=== PATIENT | male | born 1970 | race Caucasian/White ===

== ENCOUNTER 2020-01-16 11:31 | Emergency (ER) | payer OTHER ==
[~2020-01-16] VITALS: Ht 175 cm; Wt 84.0 kg
--- NOTE | 2020-01-16 11:32 | NUR ---
Pt arrived to ER5 from EMS. Work injury. States cement block fell to RLE et was there for approx 10min before a coworker could remove it. Splint on from EMS to RLE et SL to Lt AC. Pt denies pain at this time. No bleeding.
[2020-01-16] MEDS ORDERED: TETANUS,DIPTH,PERTUSS P/F (BOOSTRIX) 0.5 ML VIAL IM ONE (11:45)
[2020-01-16 11:47] LABS: BASOPHILS % (AUTO) 0 % (0-10); EOSINOPHILS # (AUTO) 0.2 10^3/uL (0.0-0.3); EOSINOPHILS % (AUTO) 1 % (0-10); HEMATOCRIT 49 % (40-54); LYMPHOCYTES # (AUTO) 2.1 X 10^3 (1.0-4.0); LYMPHOCYTES % (AUTO) 15 % (12-44); MEAN CORPUSCULAR HEMOGLOBIN 35 PG (25-34); MEAN CORPUSCULAR HGB CONC 34 G/DL (32-36); MEAN CORPUSCULAR VOLUME 100 FL (80-99); MEAN PLATELET VOLUME 11.2 FL (7.4-10.4); MONOCYTES # (AUTO) 0.7 X 10^3 (0.0-1.0); MONOCYTES % (AUTO) 5 % (0-12); NEUTROPHILS # (AUTO) 11.2 X 10^3 (1.8-7.8); NEUTROPHILS % (AUTO) 78 % (42-75); PLATELET COUNT 209 10^3/uL (130-400); RED CELL DISTRIBUTION WIDTH 13.7 % (10.0-14.5); WHITE BLOOD COUNT 14.3 10^3/uL (4.3-11.0)
--- NOTE | 2020-01-16 11:50 | NUR ---
Lab drawn from by YANIV Howard
[2020-01-16 11:58] LABS: INR 0.9 (0.8-1.4); PROTHROMBIN TIME PATIENT 12.5 SEC (12.2-14.7)
--- NOTE | 2020-01-16 12:01 | ED Lower Extremity ---
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 A frame fell towards him, landed on his right lower leg. It was on his leg for approximately 10 min before being removed. There was obvious deformity to the mid-shaft of the tibia, skin intact. Stirrup splint applied by EMS. History of previous Right ankle fracture and surgery with retained hardware. He was given Fentanyl 100 mcg IV while being transported. Denies pain at this time. No other injuries reported. He denies parasthesias right lower extremity. Onset: just prior to arrival Pain/Injury Location: right leg (mid 1/3 tib/fib) Method of Injury: direct blow Allergies and Home Medications Allergies Coded Allergies: celecoxib (Verified Allergy, Unknown, 01/16/20) Patient Home Medication List Home Medication List Reviewed: Yes Review of Systems Constitutional: no symptoms reported, see HPI Respiratory: no symptoms reported, see HPI; No cough, No short of breath Cardiovascular: no symptoms reported, see HPI; No chest pain Gastrointestinal: no symptoms reported, see HPI; No abdominal pain, No nausea, No vomiting Musculoskeletal: see HPI, muscle pain (right lower leg) Psychiatric/Neurological: See HPI; Denies Headache, Denies Numbness, Denies Paresthesia, Denies Tingling All Other Systems Reviewed Negative Unless Noted: Yes Past Rwxamwy-Mgmrpm-Onnlyq Hx Past Med/Social Hx: Reviewed Nursing Past Med/Soc Hx Physical Exam Vital Signs Vital Signs - First Documented 01/16/20 11:32 Temp 36.4 Pulse 84 Resp 14 B/P (MAP) 141/97 (112) Pulse Ox 98 O2 Delivery Room Air Capillary Refill : Height, Weight, BMI Height: '" Weight: lbs. oz. kg; BMI Method: General Appearance: WD/WN, no apparent distress HEENT: PERRL/EOMI, normal ENT inspection, TMs normal, pharynx normal Neck: non-tender, full range of motion, supple, normal inspection Cardiovascular: normal peripheral pulses (Bilat LEs 2+, Cap refill in right toes < 2 sec), regular rate, rhythm, no edema, no murmur Respiratory: chest non-tender, lungs clear, normal breath sounds, no respiratory distress Gastrointestinal: normal bowel sounds, non tender, soft Back: normal inspection, no CVA tenderness, no vertebral tenderness Hips: bilateral hip non-tender, bilateral hip normal inspection, bilateral hip normal range of motion Legs: right leg normal range of motion (to knee and ankle, but causes pain at mid-tibia), right leg abrasions (superficial to right lower leg, no active bleeding), right leg bone tenderness (mid tibia with obvious fracture palpated, skin intact), right leg deformity (mid tibia), right leg pain, right leg soft tissue tenderness, right leg swelling Knees: bilateral knee non-tender, bilateral knee normal inspection, bilateral knee normal range of motion, bilateral knee no evidence of injury Ankles: bilateral ankle non-tender, bilateral ankle normal inspection, bilateral ankle normal range of motion, bilateral ankle no evidence of injury Feet: bilateral foot non-tender, bilateral foot normal inspection, bilateral foot normal range of motion, bilateral foot no evidence of injury Neurologic/Psychiatric: no motor/sensory deficits, alert, normal mood/affect, oriented x 3 Skin: normal color, warm/dry Lymphatic: no adenopathy Progress/Results/Core Measures Results/Orders Lab Results Laboratory Tests Test 01/16/20 11:40 Range/Units White Blood Count 14.3 H 4.3-11.0 10^3/uL Red Blood Count 4.93 4.35-5.85 10^6/uL Hemoglobin 17.0 13.3-17.7 G/DL Hematocrit 49 40-54 % Mean Corpuscular Volume 100 H 80-99 FL Mean Corpuscular Hemoglobin 35 H 25-34 PG Mean Corpuscular Hemoglobin Concent 34 32-36 G/DL Red Cell Distribution Width 13.7 10.0-14.5 % Platelet Count 209 130-400 10^3/uL Mean Platelet Volume 11.2 H 7.4-10.4 FL Neutrophils (%) (Auto) 78 H 42-75 % Lymphocytes (%) (Auto) 15 12-44 % Monocytes (%) (Auto) 5 0-12 % Eosinophils (%) (Auto) 1 0-10 % Basophils (%) (Auto) 0 0-10 % Neutrophils # (Auto) 11.2 H 1.8-7.8 X 10^3 Lymphocytes # (Auto) 2.1 1.0-4.0 X 10^3 Monocytes # (Auto) 0.7 0.0-1.0 X 10^3 Eosinophils # (Auto) 0.2 0.0-0.3 10^3/uL Basophils # (Auto) 0.0 0.0-0.1 10^3/uL Neutrophils % (Manual) 79 % Lymphocytes % (Manual) 10 % Monocytes % (Manual) 7 % Eosinophils % (Manual) 1 % Basophils % (Manual) 1 % Band Neutrophils 2 % Blood Morphology Comment NORMAL Prothrombin Time 12.5 12.2-14.7 SEC INR Comment 0.9 0.8-1.4 Activated Partial Thromboplast Time 24 24-35 SEC Sodium Level 139 135-145 MMOL/L Potassium Level 4.3 3.6-5.0 MMOL/L Chloride Level 103 98-107 MMOL/L Carbon Dioxide Level 24 21-32 MMOL/L Anion Gap 12 5-14 MMOL/L Blood Urea Nitrogen 12 7-18 MG/DL Creatinine 1.10 0.60-1.30 MG/DL Estimat Glomerular Filtration Rate > 60 BUN/Creatinine Ratio 11 Glucose Level 125 H 70-105 MG/DL Calcium Level 9.5 8.5-10.1 MG/DL Corrected Calcium 8.5-10.1 MG/DL Total Bilirubin 0.4 0.1-1.0 MG/DL Aspartate Amino Transf (AST/SGOT) 28 5-34 U/L Alanine Aminotransferase (ALT/SGPT) 35 0-55 U/L Alkaline Phosphatase 80 40-136 U/L Total Protein 7.4 6.4-8.2 GM/DL Albumin 4.6 H 3.2-4.5 GM/DL My Orders Orders - BOONE MA [employer] Tibia/Fibula, Right, 2 Views (01/16/20 11:38) Knee, Right, 3 Views (01/16/20 11:38) Ankle, Right, 3 Views (01/16/20 11:38) Dipht,Pertuss(Acell),Tet Adult (Boostrix (01/16/20 11:45) Cbc With Automated Diff (01/16/20 11:39) Comprehensive Metabolic Panel (01/16/20 11:39) Protime With Inr (01/16/20 11:39) Partial Thromboplastin Time (01/16/20 11:39) Manual Differential (01/16/20 11:40) Ed Iv/Invasive Line Start (01/16/20 12:36) Lactated Ringers (Lr 1000 Ml Iv Solution (01/16/20 12:36) Fentanyl Injection (Sublimaze Injection (01/16/20 12:45) Medications Given in ED Current Medications Medications Dose Ordered Sig/Huy Route Start Time Stop Time Status Last Admin Dose Admin Diphtheria/ Tetanus/Acell Pertussis 0.5 ml ONCE ONCE IM 01/16/20 11:45 01/16/20 11:46 DC 01/16/20 12:28 0.5 ML Fentanyl Citrate 50 mcg ONCE ONCE IVP 01/16/20 12:45 01/16/20 12:46 DC 01/16/20 12:46 50 MCG Lactated Ringer's 1,000 ml @ 0 mls/hr Q0M ONCE IV 01/16/20 12:36 01/16/20 12:37 DC 01/16/20 12:44 999 MLS/HR Vital Signs/I&O 01/16/20 11:32 Temp 36.4 Pulse 84 Resp 14 B/P (MAP) 141/97 (112) Pulse Ox 98 O2 Delivery Room Air Progress Progress Note : Time: 11:30 Progress Note Patient seen and evaluated, reports pain to be tolerable. Splint removed in the right lower extremity, to fully examine right lower leg. We'll obtain x-rays, labs and continue to manage. 1205 x-ray results reviewed with patient, no orthopedic coverage at this facility, patient requests transfer to [place], [place]. 1230 call placed and message left at [facility]. Patient requesting pain medication, Fentanyl 50 mcg IV. [address] Matute ED at [facility], wants ortho approval. Spoke to Dr. Vaz, ortho, agreed to accept patient. Will go ED to ED. 1300 Patient reports pain controlled. Splint in place with betty wrap to right lower leg. Neurovas status intact, bilat LE. Ice to right mid tib/fib. [facility] notified of transfer request, will be available in 1-2 hours. 1345 Patient continues to be pain free, N-V status intact bilat LEs. 1415 EMS here for transfer, patient requesting pain medication. Fentanyl 50 mcg IV. Patient has remained stable, no change in assessment findings. Diagnostic Imaging Diagonstic Imaging: Xray Plain Films/CT/US/NM/MRI: ankle Comments NAME: JESSICA KING [facility] REC#: [id number] PT STATUS: REG ER : 1970 PHYSICIAN: BOONE MA ADMIT DATE: 01/16/20/ER Draft Date of Exam:01/16/20 ANKLE, RIGHT, 3 VIEWS HISTORY: Trauma to the right lower extremity TECHNIQUE: 3 views of the right ankle. COMPARISON: None FINDINGS: There is sequela from remote trauma of the the distal right tibia and fibula, status post internal fixation of the medial plate on the tibia and a lateral plate on the fibula. No hardware complication or acute fracture is seen about the right ankle. Alignment appears normal. Joint spaces are preserved. No ankle joint effusion is seen. The tibia and fibula diaphyseal fractures are dictated separately. IMPRESSION: 1. Old trauma of the distal right fibula and tibia status post ORIF without hardware complication seen. No acute fracture seen in the right ankle. Dictated on workstation # [id number] Dict: 01/16/20 1226 Trans: 01/16/[address] [facility] [id number] Interpreted by: JESSICA JOSEPH MD Electronically signed by: Reviewed: Reviewed by Me Diagonstic Imaging: Xray Plain Films/CT/US/NM/MRI: knee Comments NAME: JESSICA KING [facility] REC#: [id number] PT STATUS: REG ER : 1970 PHYSICIAN: BOONE MA ADMIT DATE: 01/16/20/ER Draft Date of Exam:01/16/20 KNEE, RIGHT, 3 VIEWS HISTORY: Trauma to the right lower extremity. COMPARISON: None TECHNIQUE: 3 views of the right knee FINDINGS: No acute fracture or dislocation is seen in the right knee. There is a fracture of the tibial and fibular diaphyses which is at the edge of the field of view and better seen on the concurrent tibia/through the radiographs. No right knee joint effusion is seen. Knee alignment appears normal. IMPRESSION: 1. No acute fracture or dislocation is seen in the right knee. 2. Tibia and fibula shaft fractures, please refer to separately dictated report. Dictated on workstation # [id number] Dict: 01/16/20 1223 Trans: 01/16/[address] [facility] [id number] Interpreted by: JESSICA JOSEPH MD Electronically signed by: Reviewed: Reviewed by Me Plain Films/CT/US/NM/MRI: other (tib fib) Comments NAME: JESSICA KING [facility] REC#: [id number] PT STATUS: REG ER : 1970 PHYSICIAN: BOONE MA ADMIT DATE: 01/16/20/ER Draft Date of Exam:01/16/20 TIBIA/FIBULA, RIGHT, 2 VIEWS HISTORY: Trauma to the right lower extremity. TECHNIQUE: 2 views of the right tibia/fibula COMPARISON: None FINDINGS: There is a mildly comminuted, moderately laterally angulated transverse fracture through the mid diaphysis of the right tibia. There is minimal medial and anterior displacement of the distal fragment. There is also a moderately laterally angulated comminuted oblique fracture of the mid diaphysis of the fibula. These fractures are located approximately 19 cm distal to the knee joint line. Hardware at the right ankle is noted. IMPRESSION: 1. Laterally angulated fractures of the right tibia and fibula diaphyses. Dictated on workstation # [id number] Dict: 01/16/20 1225 Trans: 01/16/[address] [facility] [id number] Interpreted by: JESSICA JOSEPH MD Electronically signed by: Reviewed: Reviewed by Me Departure Impression Primary Impression: Fracture of right tibia and fibula Qualified Codes: S82.201A - Unspecified fracture of shaft of right tibia, initial encounter for closed fracture; S82.401A - Unspecified fracture of shaft of right fibula, initial encounter for closed fracture Additional Impression: Retained orthopedic hardware Disposition: 03 XFER SNF Condition: Stable Transfer Transfer Reason: Exceeds level of care (No ortho coverage) Time Spoke to Accepting Phy: 12:45 Transfer Progress Notes Spoke to Dr. Matute in ER, agreed to accept patient, pending Ortho. Spoke to Dr. Vaz, agreed to accept patient. x-ray studies clouded to [facility]. Transfer Time: 14:15 Transfer Facility: [facility] Method of Transfer: EMS Departure-Patient Inst. Referrals: UNKNOWN (PCP/Family) Primary Care Physician BOONE MA Jan 16, 2020 12:01
[2020-01-16 12:05] LABS: ALANINE AMINOTRANSFERASE 35 U/L (0-55); ALBUMIN 4.6 GM/DL (3.2-4.5); ALKALINE PHOSPHATASE 80 U/L (40-136); BILIRUBIN,TOTAL 0.4 MG/DL (0.1-1.0); BUN/CREATININE RATIO 11; CALCIUM 9.5 MG/DL (8.5-10.1); CARBON DIOXIDE 24 MMOL/L (21-32); CHLORIDE 103 MMOL/L (98-107); GFR ESTIMATED > 60; GLUCOSE 125 MG/DL (70-105); POTASSIUM 4.3 MMOL/L (3.6-5.0); SODIUM 139 MMOL/L (135-145); TOTAL PROTEIN 7.4 GM/DL (6.4-8.2)
--- NOTE | 2020-01-16 12:11 | NUR ---
Imaging in room for joya alexandre in from drug screen
[2020-01-16 12:17] LABS: BAND NEUTROPHILS 2 %; BASOPHILS % (MANUAL) 1 %; EOSINOPHILS % (MANUAL) 1 %; LYMPHOCYTES % (MANUAL) 10 %; MONOCYTES % (MANUAL) 7 %; NEUTROPHILS % (MANUAL) 79 %; RBC MORPH NORMAL
--- NOTE | 2020-01-16 12:30 | Diagnostic Imaging Report ---
HISTORY: Trauma to the right lower extremity. COMPARISON: None TECHNIQUE: 3 views of the right knee FINDINGS: No acute fracture or dislocation is seen in the right knee. There is a fracture of the tibial and fibular diaphyses which is at the edge of the field of view and better seen on the concurrent tibia/through the radiographs. No right knee joint effusion is seen. Knee alignment appears normal. IMPRESSION: 1. No acute fracture or dislocation is seen in the right knee. 2. Tibia and fibula shaft fractures, please refer to separately dictated report. Dictated by: Dictated on workstation # [id number]
--- NOTE | 2020-01-16 12:33 | Diagnostic Imaging Report ---
HISTORY: Trauma to the right lower extremity. TECHNIQUE: 2 views of the right tibia/fibula COMPARISON: None FINDINGS: There is a mildly comminuted, moderately laterally angulated transverse fracture through the mid diaphysis of the right tibia. There is minimal medial and anterior displacement of the distal fragment. There is also a moderately laterally angulated comminuted oblique fracture of the mid diaphysis of the fibula. These fractures are located approximately 19 cm distal to the knee joint line. Hardware at the right ankle is noted. IMPRESSION: 1. Laterally angulated fractures of the right tibia and fibula diaphyses. Dictated by: Dictated on workstation # [id number]
--- NOTE | 2020-01-16 12:35 | Diagnostic Imaging Report ---
HISTORY: Trauma to the right lower extremity TECHNIQUE: 3 views of the right ankle. COMPARISON: None FINDINGS: There is sequela from remote trauma of the the distal right tibia and fibula, status post internal fixation of the medial plate on the tibia and a lateral plate on the fibula. No hardware complication or acute fracture is seen about the right ankle. Alignment appears normal. Joint spaces are preserved. No ankle joint effusion is seen. The tibia and fibula diaphyseal fractures are dictated separately. IMPRESSION: 1. Old trauma of the distal right fibula and tibia status post ORIF without hardware complication seen. No acute fracture seen in the right ankle. Dictated by: Dictated on workstation # [id number]
[2020-01-16] MEDS ORDERED: LACTATED RINGERS 1,000 ML IV ONE (12:36)
[2020-01-16] MEDS ORDERED: fentaNYL INJECTION 100 MCG/2 ML AMP IVP ONE (12:45)
--- NOTE | 2020-01-16 12:55 | NUR ---
EMS contacted regarding need for transport
--- NOTE | 2020-01-16 13:02 | NUR ---
Report called to [facility]
[2020-01-16 14:15] VITALS: BP 99/61
== END 2020-01-16 14:15 ==
LOC: ER 11:33
DX: S82.201A Unspecified fracture of shaft of right tibia, initial encounter for closed fracture (principal); S82.401A Unspecified fracture of shaft of right fibula, initial encounter for closed fracture; Z23 Encounter for immunization; Z88.6 Allergy status to analgesic agent; Z96.698 Presence of other orthopedic joint implants; W20.8XXA Other cause of strike by thrown, projected or falling object, initial encounter
CPT/HCPCS: 36415; 73562; 73590; 73610; 80053; 85007; 85027; 85610; 85730; 90715